=== PATIENT | female | born 1940 | race Two or more races ===

== ENCOUNTER 2023-03-29 01:14 | Inpatient (IN) | payer OTHER ==
[~2023-03-29] VITALS: Ht 175.3 cm; Wt 72.5 kg
[2023-03-29] MEDS ORDERED: ACCU-CHEK COMFORT CURVE STRIP VI ONE (01:45)
[2023-03-29] MEDS ORDERED: DEXTROSE 10% 1,000 ML IV ONE ×2 (02:15→06:45)
[2023-03-29 02:38] LABS: Basophils # (auto) 0 10 ^3/uL (0-0.2); Basophils % (auto) 0.4 % (0.0-2.0); Eosinophils # (auto) 0 10 ^3/uL (0-0.8); Eosinophils % (auto) 0.6 % (0.0-7.0); Hematocrit 36.7 % (36.0-46.0); Lymphocytes # (auto) 1.4 10 ^3/uL (0.4-5.4); Lymphocytes % (auto) 19.3 % (10.0-50.0); Mean Corpuscular Hemoglobin 27.9 pg (28.0-32.0); Mean Corpuscular Hgb Conc. 32.6 g/dL (32.0-36.0); Mean Corpuscular Volume 85.6 fL (80.0-100.0); Monocytes # (auto) 0.4 10 ^3/uL (0-1.3); Monocytes % (auto) 6.3 % (0.0-12.0); Neutrophils # (auto) 5.2 10 ^3/uL (1.6-8.6); Neutrophils % (auto) 73.4 % (37.0-80.0); Nucleated Red Blood Cells % 0.1 %; Red Blood Cells 4.29 10^6/uL (4.0-5.20); Red Cell Distribution Width 14.6 % (11.8-14.3); White Blood Cell 7.1 10^3/uL (4.4-10.8)
[2023-03-29 02:59] LABS: Albumin 3.1 g/dL (3.4-5.0); BUN/Creatinine Ratio 22.8 (10.0-20.0); Calcium 8.6 mg/dL (8.5-10.1); Potassium 4.1 mmol/L (3.5-5.1)
[2023-03-29 03:00] LABS: INR 0.99 (0.9-1.15); Partial Thromboplastin Time 25.5 SEC (24.5-34.5)
[2023-03-29 03:01] LABS: Bilirubin, Total 0.3 mg/dL (0.2-1.0); Total Protein 6.5 g/dL (6.4-8.2)
[2023-03-29 03:07] LABS: Urine Bacteria FEW /hpf (None Seen); Urine Blood Negative /uL (Negative); Urine Specific Gravity 1.005 (1.001-1.035); Urine WBC 4 /hpf (0 - 5)
[2023-03-29] MEDS ORDERED: cefTRIAXone 1GM/50ML D5W 50 ML IV ONE (05:00)
[2023-03-29] MEDS ORDERED: ONDANSETRON HCL 4 MG/2 ML VIAL IV PRN (11:15)
[2023-03-29] MEDS ORDERED: DOCUSATE SOD 100 MG CAP PO PRN (11:15)
[2023-03-29] MEDS ORDERED: SODIUM CHLORIDE 0.9% 1,000 ML IV SCH (11:15)
[2023-03-29] MEDS ORDERED: DEXTROSE (50%) 50ML SYRG IV PRN (11:15)
[2023-03-29] MEDS: ACCU-CHEK COMFORT CURVE STRIP VI SCH ×4 (11:51→18:17)
[2023-03-29] MEDS: SODIUM CHLORIDE 0.9% 1,000 ML IV SCH (12:41)
[2023-03-29] MEDS: ENOXAPARIN SOD 80 MG/0.8ML SYRINGE SC SCH (22:06)
[2023-03-30] MEDS: ACCU-CHEK COMFORT CURVE STRIP VI SCH ×3 (00:16→11:53)
[2023-03-30] MEDS ORDERED: hydrALAZINE HCL 20 MG/ML VL IV PRN (03:45)
[2023-03-30] MEDS: SODIUM CHLORIDE 0.9% 1,000 ML IV SCH (04:36)
[2023-03-30 06:18] LABS: Albumin 3.2 g/dL (3.4-5.0); Basophils # (auto) 0 10 ^3/uL (0-0.2); Basophils % (auto) 0.7 % (0.0-2.0); Calcium 8.5 mg/dL (8.5-10.1); Eosinophils # (auto) 0.1 10 ^3/uL (0-0.8); Eosinophils % (auto) 1.1 % (0.0-7.0); Hematocrit 36.7 % (36.0-46.0); Hemoglobin 12.1 g/dL (12.2-16.2); Lymphocytes % (auto) 37.4 % (10.0-50.0); Mean Corpuscular Hemoglobin 27.9 pg (28.0-32.0); Mean Corpuscular Hgb Conc. 32.9 g/dL (32.0-36.0); Mean Corpuscular Volume 84.7 fL (80.0-100.0); Monocytes # (auto) 0.3 10 ^3/uL (0-1.3); Monocytes % (auto) 5.3 % (0.0-12.0); Neutrophils % (auto) 55.5 % (37.0-80.0); Nucleated Red Blood Cells % 0.1 %; Potassium 3.8 mmol/L (3.5-5.1); Red Blood Cells 4.33 10^6/uL (4.0-5.20); Red Cell Distribution Width 14.6 % (11.8-14.3); White Blood Cell 5.4 10^3/uL (4.4-10.8)
[2023-03-30 06:20] LABS: BUN/Creatinine Ratio 20.3 (10.0-20.0)
[2023-03-30 06:23] LABS: Bilirubin, Total 0.3 mg/dL (0.2-1.0); Total Protein 6.8 g/dL (6.4-8.2)
[2023-03-30] MEDS: InsuLIN REG 1unit/0.01ml Soln (100units/ml) SC SCH ×2 (06:41→11:53)
[2023-03-30] MEDS ORDERED: cefTRIAXone 1GM/50ML D5W 50 ML IV SCH (09:00)
[2023-03-30] MEDS: ENOXAPARIN SOD 80 MG/0.8ML SYRINGE SC SCH (09:54)
[2023-03-30 11:50] VITALS: BP 141/67
[2023-03-30] MEDS ORDERED: INSU0.5M41 XX (11:51)
[2023-03-30] MEDS ORDERED: InsuLIN REG 1unit/0.01ml Soln (100units/ml) SC SCH (22:00)
== END 2023-03-30 12:39 | disposition home or self-care (01) | DRG 637 ==
LOC: ER 01:14 → TELE 11:17
PROVIDERS: ADMIT Nurse Practitioner Family; ATTEND Nurse Practitioner Family
DX: E11.649 Type 2 diabetes mellitus with hypoglycemia without coma (principal); G93.41 Metabolic encephalopathy; E44.1 Mild protein-calorie malnutrition; N39.0 Urinary tract infection, site not specified; G43.909 Migraine, unspecified, not intractable, without status migrainosus; F03.90 Unspecified dementia, unspecified severity, without behavioral disturbance, psychotic disturbance, mood disturbance, and anxiety; N18.9 Chronic kidney disease, unspecified; I12.9 Hypertensive chronic kidney disease with stage 1 through stage 4 chronic kidney disease, or unspecified chronic kidney disease; E11.22 Type 2 diabetes mellitus with diabetic chronic kidney disease; Z68.23 Body mass index [BMI] 23.0-23.9, adult
CPT/HCPCS: 36415; 70450; 71045; 78582; 80053; 81001; 82962; 83605; 83690; 83880; 84484; 85025; 85379; 85610; 85730; 87040; 87086; 96361; 96365; 97163; G0378; J0696; J1815

== ENCOUNTER 2024-06-18 17:17 | Inpatient (IN) | payer OTHER, MEDICAID ==
[~2024-06-18] VITALS: Ht 175.3 cm; Wt 71.3 kg
[~2024-06-18 17:17] MED LIST: INSU0.5M41 XX
[2024-06-18 18:00] VITALS: PULSE 56; RESP 18; O2SAT 98
[2024-06-18] MEDS: PIPERACILLIN-TAZO 4.5GM 100 ML IV ONE (19:07)
[2024-06-18] MEDS: MORPHINE SULFATE 4 MG/ML SYR/VIAL IV ONE (19:07)
[2024-06-18] MEDS: ONDANSETRON HCL 4 MG/2 ML VIAL IV ONE (19:07)
[2024-06-18 19:25] VITALS: PULSE 55; RESP 12; O2SAT 98
[2024-06-18 19:51] LABS: Basophils # (auto) 0.1 10 ^3/uL (0-0.2); Basophils % (auto) 0.8 % (0.0-2.0); Eosinophils # (auto) 0.2 10 ^3/uL (0-0.8); Eosinophils % (auto) 1.9 % (0.0-7.0); Hematocrit 38.2 % (36.0-46.0); Hemoglobin 12.8 g/dL (12.2-16.2); Lymphocytes # (auto) 1.6 10 ^3/uL (0.4-5.4); Lymphocytes % (auto) 18.5 % (10.0-50.0); Mean Corpuscular Hemoglobin 30.2 pg (28.0-32.0); Mean Corpuscular Hgb Conc. 33.5 g/dL (32.0-36.0); Mean Corpuscular Volume 90.2 fL (80.0-100.0); Monocytes # (auto) 0.4 10 ^3/uL (0-1.3); Monocytes % (auto) 5.2 % (0.0-12.0); Neutrophils # (auto) 6.2 10 ^3/uL (1.6-8.6); Neutrophils % (auto) 73.6 % (37.0-80.0); Platelet Count (auto) 239 10^3/uL (140-450); Red Blood Cells 4.23 10^6/uL (4.0-5.20); Red Cell Distribution Width 14.5 % (11.8-14.3); White Blood Cell 8.4 10^3/uL (4.4-10.8)
[2024-06-18 20:07] LABS: Anion Gap 7 (5-15); Carbon Dioxide 23 mmol/L (20-30); Chloride 109 mmol/L (98-107); Potassium 4.1 mmol/L (3.5-5.1); Sodium 139 mmol/L (136-145)
[2024-06-18 20:08] LABS: Calcium 9.1 mg/dL (8.7-10.4)
[2024-06-18 20:13] LABS: Glucose 117 mg/dL (74-106)
[2024-06-18 20:14] LABS: BUN/Creatinine Ratio 14.8 (10.0-20.0); Blood Urea Nitrogen 13 mg/dL (9-23)
[2024-06-18 21:20] LABS: Lactic Acid w/Reflex 2.5 mmol/L (0.4-2.0)
[2024-06-18 21:49] LABS: Urine Bacteria None Seen /hpf (None Seen)
[2024-06-18 22:02] LABS: Urine Blood 2+ /uL (Negative); Urine Budding Yeast LOADED /hpf (None Seen); Urine Clarity Ex.Turbid (Clear); Urine Color Light-Orange (Yellow); Urine Protein, UAD 1+ (Negative); Urine Specific Gravity 1.016 (1.001-1.035); Urine Urobilinogen Normal (Negative); Urine WBC 1380 /hpf (0 - 5); Urine WBC Clumps PRESENT /hpf (None Seen)
[2024-06-18] MEDS ORDERED: HYDROcodone-ACET 5/325MG TAB PO PRN (23:00)
[2024-06-18] MEDS ORDERED: MORPHINE SULFATE INJ 2 MG/ml SYRG IV PRN (23:00)
[2024-06-18] MEDS ORDERED: NITROGLYCERIN 0.4 MG SL TAB SL PRN (23:00)
[2024-06-18] MEDS ORDERED: ACETAMINOPHEN 325 MG TAB PO PRN (23:00)
[2024-06-18] MEDS ORDERED: ONDANSETRON HCL 4 MG/2 ML VIAL IV PRN (23:00)
[2024-06-18] MEDS ORDERED: DEXTROSE (50%) 50ML SYRG IV PRN (23:00)
[2024-06-18] MEDS ORDERED: DOCUSATE SOD 100 MG CAP PO PRN (23:00)
[2024-06-19] VITALS (7 sets, daily range): BP systolic 148–164; BP diastolic 58–82; PULSE 51–70; RESP 16–20; TEMP 97.8–98.6; O2SAT 92–100
[2024-06-19] MEDS: SODIUM CHLORIDE 0.9% 1,000 ML IV SCH (01:31)
[2024-06-19] MEDS: PIPERACILLIN-TAZOB 3.375GM 100 ML IV SCH (05:45)
[2024-06-19 06:09] LABS: Basophils # (auto) 0.1 10 ^3/uL (0-0.2); Basophils % (auto) 0.8 % (0.0-2.0); Eosinophils # (auto) 0.2 10 ^3/uL (0-0.8); Hematocrit 33.1 % (36.0-46.0); Hemoglobin 11.5 g/dL (12.2-16.2); Lymphocytes # (auto) 1.6 10 ^3/uL (0.4-5.4); Lymphocytes % (auto) 23.7 % (10.0-50.0); Mean Corpuscular Hgb Conc. 34.8 g/dL (32.0-36.0); Monocytes # (auto) 0.3 10 ^3/uL (0-1.3); Monocytes % (auto) 4.7 % (0.0-12.0); Neutrophils # (auto) 4.6 10 ^3/uL (1.6-8.6); Neutrophils % (auto) 67.8 % (37.0-80.0); Nucleated Red Blood Cells % 0.1 %; Platelet Count (auto) 194 10^3/uL (140-450); Red Blood Cells 3.72 10^6/uL (4.0-5.20); Red Cell Distribution Width 14.2 % (11.8-14.3); White Blood Cell 6.8 10^3/uL (4.4-10.8)
[2024-06-19 06:19] LABS: Albumin 3.3 g/dL (3.2-4.8); Alkaline Phosphatase 100 U/L (46-116); Anion Gap 5 (5-15); Aspartate Aminotransferase 14 U/L (13-40); Bilirubin, Total 0.4 mg/dL (0.2-1.0); Blood Urea Nitrogen 12 mg/dL (9-23); Calcium 8.6 mg/dL (8.7-10.4); Carbon Dioxide 24 mmol/L (20-30); Chloride 110 mmol/L (98-107); Glucose 101 mg/dL (74-106); Potassium 3.9 mmol/L (3.5-5.1); Sodium 139 mmol/L (136-145)
[2024-06-19 06:42] LABS: Alanine Aminotransferase 9 U/L (7-40)
[2024-06-19] MEDS: InsuLIN REG 1unit/0.01ml Soln (100units/ml) SC SCH (07:00)
[2024-06-19] MEDS: ACCU-CHEK COMFORT CURVE STRIP VI SCH (07:00)
[2024-06-19] MEDS ORDERED: HYDR1TAB97 PO (07:49)
[2024-06-19] MEDS ORDERED: DONE1TAB88 PO (07:49)
[2024-06-19] MEDS ORDERED: AMLO1TAB23 PO (07:49)
[2024-06-19] MEDS ORDERED: SERT-289 PO (07:49)
[2024-06-19] MEDS ORDERED: MEMA1TAB5 PO (07:49)
[2024-06-19] MEDS ORDERED: INS7030I SC (07:49)
[2024-06-19] MEDS ORDERED: ATOR40TA52 PO (07:49)
[2024-06-19] MEDS ORDERED: AMLO1TAB22 PO (07:49)
[2024-06-19] MEDS ORDERED: LISI10TA34 PO (07:49)
[2024-06-19] MEDS: ASPirin 81 mg TAB PO SCH (10:16)
[2024-06-19] MEDS: ZINC SULFATE 220mg CAP or TAB PO SCH (10:16)
[2024-06-19] MEDS: ASCORBIC ACID 500 MG TAB PO SCH (10:16)
[2024-06-19] MEDS: FAMOTIDINE (10MG/ML) 2ML VL IV SCH (10:17)
[2024-06-19] MEDS: MEMANTINE HCL 5 MG TAB PO SCH (10:17)
[2024-06-19] MEDS: ATORVASTATIN 20 MG TAB PO SCH (21:17)
[2024-06-19] MEDS ORDERED: METOCLOPRAMIDE HCL 5MG/ml INJ 2ml VIAL IV PRN (22:45)
[2024-06-20 01:00] VITALS: BP 140/64; PULSE 64; RESP 20; TEMP 98.3; O2SAT 95
[2024-06-20 05:00] VITALS: BP 160/69; PULSE 61; RESP 18; TEMP 98.3; O2SAT 95
[2024-06-20 08:00] VITALS: PULSE 58; PULSE 59; RESP 20; O2SAT 93
[2024-06-20 08:56] VITALS: BP 159/70; PULSE 59; RESP 20; TEMP 99; O2SAT 93
[2024-06-20 11:46] VITALS: BP 159/70; PULSE 59; RESP 20; TEMP 98; O2SAT 93
[2024-06-20] MEDS: hydrALAZINE HCL 20 MG/ML VL IV PRN (12:12)
[2024-06-20 13:00] VITALS: BP 169/60; PULSE 61; RESP 20; TEMP 98.4; O2SAT 97
== END 2024-06-20 13:55 | disposition home or self-care (01) | DRG 605 ==
LOC: ER 17:17 → TELE 22:59 → TELE-CENTR 06-19 06:00
PROVIDERS: ADMIT Nurse Practitioner Family; ATTEND Nurse Practitioner Family
DX: S71.002A Unspecified open wound, left hip, initial encounter (principal); N39.0 Urinary tract infection, site not specified; E11.9 Type 2 diabetes mellitus without complications; F03.90 Unspecified dementia, unspecified severity, without behavioral disturbance, psychotic disturbance, mood disturbance, and anxiety; I10 Essential (primary) hypertension; Z96.642 Presence of left artificial hip joint; Z79.4 Long term (current) use of insulin; Z79.899 Other long term (current) drug therapy; Z90.710 Acquired absence of both cervix and uterus; X58.XXXA Exposure to other specified factors, initial encounter; Y93.89 Activity, other specified; Y92.89 Other specified places as the place of occurrence of the external cause; Y99.8 Other external cause status
CPT/HCPCS: 36415; 72192; 80048; 80053; 81001; 82962; 83605; 85025; 87081; 87086; G0378; J1815; J2405; J2543; J3490